=== PATIENT | male | born 1950 | race Two or more races ===

== ENCOUNTER 2020-02-23 06:25 | Outpatient (CLI) | payer OTHER ==
[~2020-02-23 06:25] MED LIST: ATACAND32 MG PO; CINTROID; JANUVIA25 MG PO; LANTUS SOLOSTAR3 ML SQ; SYNTHROID137 MCG; SYNTHROID150 MCG; SYNTHROID75 MCG; TOPROL XL50 MG PO
[2020-03-01] MEDS ORDERED: HYDROCHLOROTH12.5 MG PO (12:10)
[2020-03-01] MEDS ORDERED: NORVASC2.5 M1 PO (12:10)
[2020-03-01] MEDS ORDERED: GLIMEPIRIDE2 MG PO (12:11)
[2020-03-01] MEDS ORDERED: METFORMIN HCL500 MG PO (12:11)
== END 2020-02-23 06:32 | disposition home or self-care (01) ==
LOC: LAB 06:25
PROVIDERS: ATTEND Urology
DX: R97.21 Rising PSA following treatment for malignant neoplasm of prostate (principal)

== ENCOUNTER 2020-02-23 07:19 | Outpatient (CLI) | payer OTHER ==
[2020-03-01] MEDS ORDERED: HYDROCHLOROTH12.5 MG PO (12:10)
[2020-03-01] MEDS ORDERED: NORVASC2.5 M1 PO (12:10)
[2020-03-01] MEDS ORDERED: METFORMIN HCL500 MG PO (12:11)
[2020-03-01] MEDS ORDERED: GLIMEPIRIDE2 MG PO (12:11)
== END 2020-02-23 07:32 | disposition home or self-care (01) ==
LOC: SONOGRAMA 07:19 → MAMO-SONO 08:30
PROVIDERS: ATTEND Urology
DX: N43.2 Other hydrocele (principal); I86.1 Scrotal varices

== ENCOUNTER 2020-02-27 08:38 | Outpatient (CLI) | payer OTHER ==
[2020-03-01] MEDS ORDERED: HYDROCHLOROTH12.5 MG PO (12:10)
[2020-03-01] MEDS ORDERED: NORVASC2.5 M1 PO (12:10)
[2020-03-01] MEDS ORDERED: METFORMIN HCL500 MG PO (12:11)
[2020-03-01] MEDS ORDERED: GLIMEPIRIDE2 MG PO (12:11)
== END 2020-02-27 08:40 | disposition home or self-care (01) ==
LOC: RAD 08:38
PROVIDERS: ATTEND Urology
DX: I11.0 Hypertensive heart disease with heart failure (principal); E11.9 Type 2 diabetes mellitus without complications

== ENCOUNTER 2020-02-27 09:57 | Outpatient (CLI) | payer OTHER ==
[2020-03-01] MEDS ORDERED: NORVASC2.5 M1 PO (12:10)
[2020-03-01] MEDS ORDERED: HYDROCHLOROTH12.5 MG PO (12:10)
[2020-03-01] MEDS ORDERED: GLIMEPIRIDE2 MG PO (12:11)
[2020-03-01] MEDS ORDERED: METFORMIN HCL500 MG PO (12:11)
== END 2020-02-27 12:27 | disposition home or self-care (01) ==
LOC: EKG 09:57
PROVIDERS: ATTEND Urology
DX: Z01.810 Encounter for preprocedural cardiovascular examination (principal)

== ENCOUNTER 2020-03-03 05:59 | Day surgery (SDC) | payer OTHER ==
[~2020-03-03 05:59] MED LIST changes: +GLIMEPIRIDE2 MG PO; +HYDROCHLOROTH12.5 MG PO; +METFORMIN HCL500 MG PO; +NORVASC2.5 M1 PO
== END 2020-03-03 10:50 | disposition home or self-care (01) ==
LOC: CIR.AMB 05:59
PROVIDERS: ATTEND Urology
DX: N43.2 Other hydrocele (principal); Z20.828 Contact with and (suspected) exposure to other viral communicable diseases

== ENCOUNTER 2020-11-24 13:58 | Outpatient (CLI) | payer OTHER | END 2020-11-24 14:16 | disposition home or self-care (01) | LOC: SONOGRAMA 13:58 → MAMO-SONO 14:00 → SONOGRAMA 14:16 | PROVIDERS: ATTEND Otolaryngology | DX: E03.8 Other specified hypothyroidism (principal); D47.2 Monoclonal gammopathy; C73 Malignant neoplasm of thyroid gland ==